=== PATIENT | male | born 1965 | race Caucasian/White ===

== ENCOUNTER 2022-03-30 23:02 | Emergency (ER) | payer OTHER, SELFPAY ==
[2022-03-30 23:13] VITALS: BP 149/86; PULSE 69; RESP 22; TEMP 36.1; O2SAT 99; BMI 31.1
--- NOTE | 2022-03-30 23:28 | PC.NURSE ---
Patient up to restroom to collect UA sample, patient returns with dark urine and visible stone in bottom of cup. Patient reports significant relief.
--- NOTE | 2022-03-30 23:47 | PC.NURSE ---
patient reports sudden onset of right flank pain wrapping around to front of abd. Patient states he feels need to go but only small amounts of urine. Patient denies history of kidney stone.
[2022-03-31 00:13] LABS: Appearance Urine UA Slightly Cloudy; Color Urine UA Yellow; Glucose Urine UA NEGATIVE (Negative); Ketones Urine UA 1+ (NEGATIVE); Occult Blood Urine UA 3+ (Negative); Protein Urine UA 2+ (Negative); Specific Gravity Urine UA 1.025 (1.000-1.035); pH Urine UA 5.5 (4.5-8.0)
[2022-03-31 00:14] LABS: Bacteria Urine None Seen; Bilirubin Urine UA NEGATIVE (NEGATIVE); Culture Indicated Urine Cult Not Indicated; Leukocyte Esterase Urine UA NEGATIVE (NEGATIVE); Mucus Urine 2+ (Negative); Nitrite Urine UA NEGATIVE (Negative); RBC Urine >100/HPF (0-5/HPF); Urobilinogen Urine UA 0.2 E.U./dL (0.2); WBC Urine 0-1/HPF (0-5/HPF)
== END 2022-03-31 00:38 | disposition left against medical advice (07) ==
PROVIDERS: Emergency Provider Emergency Medicine
DX: R33.9 Retention of urine, unspecified (principal)
CPT/HCPCS: 81001; 99281